=== PATIENT | female | born 1965 | race Caucasian/White ===

== ENCOUNTER 2019-07-28 05:53 | Day surgery (SDC) | payer BC, OTHER ==
[2019-07-26 09:05] VITALS: BMI 23.0
[2019-07-28 07:02] VITALS: TEMP 97.6
[2019-07-28] MEDS ORDERED: KETAMINE HCL 500 MG/10 ML VIAL ONE (07:19)
[2019-07-28] MEDS ORDERED: ONDANSETRON 4 MG/2 ML VIAL IVPUSH PRN (08:55)
[2019-07-28] MEDS ORDERED: LACTATED RINGERS SOLUTION 1,000 ML IV SCH (09:00)
[2019-07-28 09:04] VITALS: BP 128/74; PULSE 68
== END 2019-07-28 09:08 | disposition home or self-care (01) ==
LOC: FECT 05:53
PROVIDERS: ATTEND Psychiatry & Neurology Psychiatry
PROC: GZB4ZZZ Other Electroconvulsive Therapy (ICD-10-PCS; principal; 2019-07-28 07:15)
DX: F32.9 Major depressive disorder, single episode, unspecified (principal)
CPT/HCPCS: 90870; 94760

== ENCOUNTER 2019-07-30 05:47 | Day surgery (SDC) | payer BC, OTHER ==
[2019-07-27 10:13] VITALS: BMI 23.0
[2019-07-30 07:06] VITALS: TEMP 97.8
[2019-07-30] MEDS ORDERED: KETAMINE HCL 500 MG/10 ML VIAL ONE (07:42)
[2019-07-30] MEDS ORDERED: ACETAMINOPHEN 325 MG TABLET (FP) ONE (08:49)
[2019-07-30] MEDS ORDERED: ACETAMINOPHEN 325 MG TABLET (FP) PO PRN (09:09)
[2019-07-30 09:11] VITALS: BP 136/72; PULSE 76
== END 2019-07-30 09:12 | disposition home or self-care (01) ==
LOC: FECT 05:47
PROVIDERS: ATTEND Psychiatry & Neurology Psychiatry
PROC: GZB4ZZZ Other Electroconvulsive Therapy (ICD-10-PCS; principal; 2019-07-30 07:45)
DX: F32.9 Major depressive disorder, single episode, unspecified (principal)
CPT/HCPCS: 90870; 94760

== ENCOUNTER 2019-08-04 05:39 | Day surgery (SDC) | payer BC, OTHER ==
[2019-07-29 10:18] VITALS: BMI 23.0
[2019-08-04] MEDS ORDERED: KETAMINE HCL 500 MG/10 ML VIAL ONE (07:40)
[2019-08-04] MEDS ORDERED: ACETAMINOPHEN 325 MG TABLET (FP) PO PRN (07:59)
[2019-08-04 08:42] VITALS: PULSE 87
[2019-08-04 09:05] VITALS: TEMP 98.2
[2019-08-04 09:34] VITALS: BP 109/54
== END 2019-08-04 09:36 | disposition home or self-care (01) ==
LOC: FECT 05:39
PROVIDERS: ATTEND Psychiatry & Neurology Psychiatry
PROC: GZB4ZZZ Other Electroconvulsive Therapy (ICD-10-PCS; principal; 2019-08-04 07:00)
DX: F32.9 Major depressive disorder, single episode, unspecified (principal)
CPT/HCPCS: 90870; 94760

== ENCOUNTER 2019-08-06 05:48 | Day surgery (SDC) | payer BC, OTHER ==
[2019-07-29 10:23] VITALS: BMI 23.0
[2019-08-06] MEDS ORDERED: KETAMINE HCL 500 MG/10 ML VIAL ONE (07:38)
[2019-08-06 09:09] VITALS: BP 135/80; PULSE 65; TEMP 98.4
[2019-08-06] MEDS ORDERED: ONDANSETRON 4 MG/2 ML VIAL IVPUSH PRN (09:44)
[2019-08-06] MEDS ORDERED: LACTATED RINGERS SOLUTION 1,000 ML IV SCH (09:45)
== END 2019-08-06 09:14 | disposition home or self-care (01) ==
LOC: FECT 05:48
PROVIDERS: ATTEND Psychiatry & Neurology Psychiatry
PROC: GZB4ZZZ Other Electroconvulsive Therapy (ICD-10-PCS; principal; 2019-08-06 07:45)
DX: F33.2 Major depressive disorder, recurrent severe without psychotic features (principal)
CPT/HCPCS: 82962; 90870; 94760

== ENCOUNTER 2019-08-11 05:41 | Day surgery (SDC) | payer BC, OTHER ==
[2019-08-02 16:47] VITALS: BMI 23.0
[2019-08-11 06:35] VITALS: TEMP 97.9
[2019-08-11] MEDS ORDERED: KETAMINE HCL 500 MG/10 ML VIAL ONE (07:04)
[2019-08-11] MEDS ORDERED: LACTATED RINGERS SOLUTION 1,000 ML IV SCH (07:45)
[2019-08-11 08:51] VITALS: BP 118/77; PULSE 69
== END 2019-08-11 08:50 | disposition home or self-care (01) ==
LOC: FECT 05:41
PROVIDERS: ATTEND Psychiatry & Neurology Psychiatry
PROC: GZB4ZZZ Other Electroconvulsive Therapy (ICD-10-PCS; principal; 2019-08-11 07:15)
DX: F32.9 Major depressive disorder, single episode, unspecified (principal)
CPT/HCPCS: 90870; 94760

== ENCOUNTER 2019-08-13 05:44 | Day surgery (SDC) | payer BC, OTHER ==
[2019-08-06 13:42] VITALS: BMI 23.0
[2019-08-13 06:47] VITALS: TEMP 97.5
[2019-08-13] MEDS ORDERED: KETAMINE HCL 500 MG/10 ML VIAL ONE (07:18)
[2019-08-13 09:12] VITALS: BP 132/62; PULSE 61
== END 2019-08-13 08:50 | disposition home or self-care (01) ==
LOC: FECT 05:44
PROVIDERS: ATTEND Psychiatry & Neurology Psychiatry
PROC: GZB4ZZZ Other Electroconvulsive Therapy (ICD-10-PCS; principal; 2019-08-13 07:00)
DX: F33.2 Major depressive disorder, recurrent severe without psychotic features (principal)
CPT/HCPCS: 90870; 94760

== ENCOUNTER 2019-08-18 05:39 | Day surgery (SDC) | payer BC, OTHER ==
[2019-08-11 14:45] VITALS: BMI 23.0
[2019-08-18] MEDS ORDERED: KETAMINE HCL 500 MG/10 ML VIAL ONE (07:40)
[2019-08-18 09:10] VITALS: TEMP 97.6
[2019-08-18 10:02] VITALS: BP 101/59; PULSE 61
== END 2019-08-18 09:30 | disposition home or self-care (01) ==
LOC: FECT 05:39
PROVIDERS: ATTEND Psychiatry & Neurology Psychiatry
PROC: GZB4ZZZ Other Electroconvulsive Therapy (ICD-10-PCS; principal; 2019-08-18 07:00)
DX: F32.9 Major depressive disorder, single episode, unspecified (principal)
CPT/HCPCS: 90870; 94760

== ENCOUNTER 2019-08-20 05:44 | Day surgery (SDC) | payer BC, OTHER ==
[2019-08-11 14:52] VITALS: BMI 23.0
[2019-08-20 06:46] VITALS: TEMP 97.8
[2019-08-20] MEDS ORDERED: KETAMINE HCL 500 MG/10 ML VIAL ONE (07:21)
[2019-08-20 09:02] VITALS: BP 108/56; PULSE 59
--- NOTE | 2019-08-20 09:40 | HP ---
CHIEF COMPLAINT: Major depressive disorder PCP: Dr. Saul Scruggs [place] Primary Psychiatrist: Nora Edge PA Pain management: Courtney Burt (U) HISTORY OF PRESENT ILLNESS: 53 year-old female with a PMH significant for major depressive disorder, active polysubstance abuse (heroin, cocaine, marijuana), and chronic back pain (benzos , opioids). Her first ECT session was on 07/19/19 at [facility]. She presents today for ECT. Recent Events: --none reported Recent travel No PAST MEDICAL HISTORY Major depressive disorder Polysubstance abuse Chronic back pain PAST SURGICAL HISTORY: None Social History: on disability, lives in [place] with fioksanae and daughter Smoking: quit 05/2019 after 30 years Alcohol: no Drugs: patient denies drug use; however, records from [facility] indicates she is actively using marijuana, cocaine, and heroin; also see ISTOP below Family history: adopted, no knowledge of biological family Allergies sumatriptan [From Imitrex] Allergy (Severe, Verified 08/11/19 14:42) Swelling HOME MEDICATIONS: Home Medications Medication Instructions Recorded Cyclobenzaprine HCl [Flexeril 10 10 mg PO BID PRN 07/26/19 mg] Fluoxetine HCl [Prozac] 40 mg PO DAILY 07/26/19 Quetiapine Fumarate [Seroquel -] 100 mg PO HS 07/26/19 Ziprasidone HCl [Geodon] 80 mg PO BID 07/26/19 clonazePAM [Klonopin -] 0.5 mg PO BID 07/26/19 Ibuprofen [Motrin -] 600 mg PO PRN PRN 08/18/19 REVIEW OF SYSTEMS CONSTITUTIONAL: Absent: fever, chills, diaphoresis, generalized weakness, malaise, loss of appetite, weight change HEENT: Absent: rhinorrhea, nasal congestion, throat pain, throat swelling, difficulty swallowing, mouth swelling, ear pain, eye pain, visual changes CARDIOVASCULAR: Absent: chest pain, syncope, palpitations, irregular heart rate, lightheadedness , peripheral edema RESPIRATORY: Absent: cough, shortness of breath, dyspnea with exertion, orthopnea, wheezing, stridor, hemoptysis GASTROINTESTINAL: Absent: abdominal pain, abdominal distension, nausea, vomiting, diarrhea, constipation, melena, hematochezia GENITOURINARY: Absent: dysuria, frequency, urgency, hesitancy, hematuria, flank pain, genital pain MUSCULOSKELETAL: Absent: myalgia, arthralgia, joint swelling, back pain, neck pain SKIN: Absent: rash, itching, pallor HEMATOLOGIC/IMMUNOLOGIC: Absent: easy bleeding, easy bruising, lymphadenopathy, frequent infections ENDOCRINE: Absent: unexplained weight gain, unexplained weight loss, heat intolerance, cold intolerance NEUROLOGIC: Absent: headache, focal weakness or paresthesias, dizziness, unsteady gait, seizure, mental status changes, bladder or bowel incontinence PHYSICAL EXAMINATION Vital Signs - 24 hr 08/20/19 08/20/19 08/20/19 06:44 07:47 07:52 Temperature 97.8 F Pulse Rate 49 L 46 L 48 L Respiratory 16 10 16 Rate Blood Pressure 89/47 L 91/37 L 88/44 L O2 Sat by Pulse 94 L 91 L 93 L Oximetry (%) 08/20/19 08/20/19 08/20/19 07:57 08:00 08:09 Temperature Pulse Rate 56 L 62 48 L Respiratory 13 19 17 Rate Blood Pressure 102/64 104/60 141/62 O2 Sat by Pulse 92 L 94 L 93 L Oximetry (%) 08/20/19 08/20/19 08/20/19 08:15 08:25 08:30 Temperature 97.8 F Pulse Rate 51 L 50 L 54 L Respiratory 14 16 18 Rate Blood Pressure 100/54 L 103/67 112/56 L O2 Sat by Pulse 95 95 96 Oximetry (%) 08/20/19 08/20/19 09:00 09:15 Temperature 97.8 F 97.8 F Pulse Rate 59 L 59 L Respiratory 18 18 Rate Blood Pressure 108/56 L 108/56 L O2 Sat by Pulse 96 Oximetry (%) GENERAL: Patient seen after ECT treatment; appears sleepy but fully arousable, answers questions appropriately HEAD: Normal with no signs of trauma. EYES: Pupils equal, round and reactive to light, sclera anicteric, conjunctiva clear. LUNGS: Breath sounds equal, clear to auscultation bilaterally. No wheezes, and no crackles. No accessory muscle use. HEART: Regular rate and rhythm, normal S1 and S2 ABDOMEN: Soft, nontender, not distended MUSCULOSKELETAL: Normal range of motion at all joints. No bony deformities or tenderness. No CVA tenderness. UPPER EXTREMITIES: 2+ pulses, warm, well-perfused. No cyanosis. No clubbing. No peripheral edema. LOWER EXTREMITIES: 2+ pulses, warm, well-perfused. No calf tenderness. No peripheral edema. NEUROLOGICAL: Cranial nerves II-XII intact. Normal speech. ASSESSMENT/PLAN: 53 year-old female with a PMH significant for major depressive disorder, active polysubstance abuse (heroin, cocaine, marijunana), and chronic back pain (benzos , opioids). Her first ECT session was on 07/19/19 at [facility]. She presents today for ECT. Earlier today utox ordered by OR team, results pending. Cardiac --no cardiac history --Revised Cardiac Risk Index for Pre-Operative Risk: 0 points, 0.4% risk of major cardiac event Pulmonary --no pulmonary history Neurological --no neurological or neurosurgical history; no history of trauma Anesthesia --no reported problems with anesthesia ECT is a low risk procedure. The relative benefits of the planned procedure outweigh the relative risks for this patient at this time. Visit type - Emergency Visit Emergency Visit: No - New Patient This patient is new to me today: Yes Date on this admission: 08/20/19 - Critical Care Critical Care patient: No
[2019-08-30 06:07] LABS: ALPRAZOLAM, UR Negative (Cutoff=100); BENZODIAZEPINES, UR See Final Results ng/mL (Cutoff=200); CANNABINOID Positive (Cutoff=20); CANNABINOIDS, URINE See Final Results ng/mL (Cutoff=20); CLONAZEPAM, UR Negative (Cutoff=100); CODEINE GC/MS CONF 825 ng/mL (Cutoff=300); CODEINE, URINE Positive (.); FLURAZEPAM, UR Negative (Cutoff=100); LORAZEPAM, UR Negative (Cutoff=100); METHADONE, URINE Negative ng/mL (Cutoff=300); MORPHINE, URINE Positive (.); OPIATES, UR See Final Results ng/mL (Cutoff=300); OXAZEPAM, UR Positive (.); PHENCYCLIDINE, URINE Negative ng/mL (Cutoff=25); TRIAZOLAM, UR Negative (Cutoff=100)
== END 2019-08-20 09:15 | disposition home or self-care (01) ==
LOC: FECT 05:44
PROVIDERS: ATTEND Psychiatry & Neurology Psychiatry
PROC: GZB4ZZZ Other Electroconvulsive Therapy (ICD-10-PCS; principal; 2019-08-20 07:00)
DX: F32.9 Major depressive disorder, single episode, unspecified (principal)
CPT/HCPCS: 36415; 80307; 90870; 94760

== ENCOUNTER 2019-08-27 05:46 | Day surgery (SDC) | payer BC, OTHER ==
--- NOTE | 2019-07-26 09:42 | HP ---
"CHIEF COMPLAINT: Major depressive disorder PCP: Dr. Saul Scruggs [place] Primary Psychiatrist: Nora Edge PA Pain management: Courtney Burt (U) HISTORY OF PRESENT ILLNESS: 53 year-old female with a PMH significant for major depressive disorder, active polysubstance abuse (heroin, cocaine, marijunana), and chronic back pain (benzos , opioids). Her first ECT session was on 07/19/19 at [facility]. She presents today for ECT. Recent Events: --discharged from [facility] psych/drug unit Recent travel No PAST MEDICAL HISTORY: Major depressive disorder Polysubstance abuse Chronic back pain PAST SURGICAL HISTORY: None Social History: on disability, lives in [place] with lizbethe and daughter Smoking: quit 05/2019 after 30 years Alcohol: no Drugs: patient denies drug use; however, records from [facility] indicates she is actively using marijuana, cocaine, and heroin; also see ISTOP below Family history: adopted, no knowledge of biological family Allergies sumatriptan [From Imitrex] Allergy (Severe, Verified 07/26/19 08:42) Swelling HOME MEDICATIONS: Home Medications Medication Instructions Recorded Cyclobenzaprine HCl [Flexeril 10 10 mg PO BID PRN 07/26/19 mg] Fluoxetine HCl [Prozac] 40 mg PO DAILY 07/26/19 Quetiapine Fumarate [Seroquel -] 100 mg PO HS 07/26/19 Ziprasidone HCl [Geodon] 80 mg PO BID 07/26/19 clonazePAM [Klonopin -] 0.5 mg PO BID 07/26/19 REVIEW OF SYSTEMS CONSTITUTIONAL: Absent: fever, chills, diaphoresis, generalized weakness, malaise, loss of appetite, weight change HEENT: Absent: rhinorrhea, nasal congestion, throat pain, throat swelling, difficulty swallowing, mouth swelling, ear pain, eye pain, visual changes CARDIOVASCULAR: Absent: chest pain, syncope, palpitations, irregular heart rate, lightheadedness , peripheral edema RESPIRATORY: Absent: cough, shortness of breath, dyspnea with exertion, orthopnea, wheezing, stridor, hemoptysis GASTROINTESTINAL: Absent: abdominal pain, abdominal distension, nausea, vomiting, diarrhea, constipation, melena, hematochezia GENITOURINARY: Absent: dysuria, frequency, urgency, hesitancy, hematuria, flank pain, genital pain MUSCULOSKELETAL: Absent: myalgia, arthralgia, joint swelling, back pain, neck pain SKIN: Absent: rash, itching, pallor HEMATOLOGIC/IMMUNOLOGIC: Absent: easy bleeding, easy bruising, lymphadenopathy, frequent infections ENDOCRINE: Absent: unexplained weight gain, unexplained weight loss, heat intolerance, cold intolerance NEUROLOGIC: Absent: headache, focal weakness or paresthesias, dizziness, unsteady gait, seizure, mental status changes, bladder or bowel incontinence PHYSICAL EXAMINATION Vitals: BP 132/87, p 97, 100% RA GENERAL: Awake, alert, and fully oriented, in no acute distress. HEAD: Normal with no signs of trauma. EYES: Pupils equal, round and reactive to light, sclera anicteric, conjunctiva clear. LUNGS: Breath sounds equal, clear to auscultation bilaterally. No wheezes, and no crackles. No accessory muscle use. HEART: Regular rate and rhythm, normal S1 and S2 ABDOMEN: Soft, nontender, not distended MUSCULOSKELETAL: Normal range of motion at all joints. No bony deformities or tenderness. No CVA tenderness. UPPER EXTREMITIES: 2+ pulses, warm, well-perfused. No cyanosis. No clubbing. No peripheral edema. LOWER EXTREMITIES: 2+ pulses, warm, well-perfused. No calf tenderness. No peripheral edema. NEUROLOGICAL: Cranial nerves II-XII intact. Normal speech. ASSESSMENT/PLAN: 53 year-old female with a PMH significant for major depressive disorder, active polysubstance abuse (heroin, cocaine, marijunana), and chronic back pain (benzos , opioids). Her first ECT session was on 07/19/19 at [facility]. She presents today for ECT. Cardiac --no cardiac history --Revised Cardiac Risk Index for Pre-Operative Risk: 0 points, 0.4% risk of major cardiac event Pulmonary --no pulmonary history Neurological --no neurological or neurosurgical history; no history of trauma Anesthesia --no reported problems with anesthesia --discussed patient's drug use with anesthesia and with [facility] staff ECT is a low risk procedure. The relative benefits of the planned procedure outweigh the relative risks for this patient at this time. ISTOP The Drug Utilization Report below displays all of the controlled substance prescriptions, if any, that your patient has filled in the last twelve months. The information displayed on this report is compiled from pharmacy submissions to the Department, and accurately reflects the information as submitted by the pharmacies. This report was requested by: Niyah Wang | Reference #: [id number] Others' Prescriptions Patient Name: Deanna Carroll Date: 1965 Address: [address] [place] [address] Sex: Female Rx Written Rx Dispensed Drug Quantity Days Supply Prescriber Name 07/21/2019 07/21/2019 clonazepam 0.5 mg tablet 14 7 Denise Grace S, 06/22/2019 06/22/2019 oxycodone-acetaminophen 5-325 mg tab 90 30 Etienne Bejarano MD 04/14/2019 04/22/2019 diazepam 10 mg tablet 270 90 Dylon Hernandez 02/24/2019 02/28/2019 oxycodone-acetaminophen 5-325 mg tab 90 30 Etienne Bejarano MD 01/25/2019 01/25/2019 oxycodone-acetaminophen 5-325 mg tab 90 30 Etienne Bejarano MD 12/30/2018 12/30/2018 clonazepam 1 mg tablet 90 30 Ermias El MD 12/21/2018 12/25/2018 oxycodone-acetaminophen 5-325 mg tab 90 30 Etienne Bejarano MD 11/30/2018 11/30/2018 clonazepam 1 mg tablet 90 30 Ermias El MD 11/10/2018 11/12/2018 oxycodone-acetaminophen 5-325 mg tab 90 30 Etienne Bejarano MD 10/25/2018 10/27/2018 clonazepam 1 mg tablet 90 30 Ermias El MD 10/09/2018 10/13/2018 oxycodone-acetaminophen 5-325 mg tab 90 30 Etienne Bejarano MD 09/28/2018 09/28/2018 clonazepam 1 mg tablet 90 30 Ermias El MD 09/11/2018 09/11/2018 oxycodone-acetaminophen 5-325 mg tab 90 30 Eteinne Bejarano MD 08/25/2018 08/29/2018 clonazepam 1 mg tablet 90 30 Ermias El MD 08/11/2018 08/12/2018 oxycodone-acetaminophen 5-325 mg tab 90 30 Etienne Bejarano MD 07/30/2018 07/30/2018 clonazepam 1 mg tablet 90 30 Ermias El MD Visit type - Emergency Visit Emergency Visit: No - New Patient This patient is new to me today: Yes Date on this admission: 07/27/19 - Critical Care Critical Care patient: No"
[2019-07-27 14:39] VITALS: BMI 23.0
[2019-08-27] MEDS ORDERED: KETAMINE HCL 500 MG/10 ML VIAL ONE (07:11)
[2019-08-27] MEDS ORDERED: ACETAMINOPHEN 500 MG TABLET (FP) PO PRN (07:59)
[2019-08-27 08:52] VITALS: TEMP 97.8
[2019-08-27 09:15] VITALS: BP 115/71; PULSE 64
== END 2019-08-27 09:30 | disposition home or self-care (01) ==
LOC: FECT 05:46
PROVIDERS: ATTEND Psychiatry & Neurology Psychiatry
PROC: GZB4ZZZ Other Electroconvulsive Therapy (ICD-10-PCS; principal; 2019-08-27 07:15)
DX: F32.9 Major depressive disorder, single episode, unspecified (principal)
CPT/HCPCS: 90870; 94760

== ENCOUNTER 2019-09-01 05:47 | Day surgery (SDC) | payer BC, OTHER ==
[2019-09-01 06:49] VITALS: BMI 23.0
[2019-09-01] MEDS ORDERED: KETAMINE HCL 500 MG/10 ML VIAL ONE (07:16)
[2019-09-01 08:55] VITALS: TEMP 98.2
[2019-09-01 09:26] VITALS: BP 118/61; PULSE 61
== END 2019-09-01 09:28 | disposition home or self-care (01) ==
LOC: FECT 05:47
PROVIDERS: ATTEND Psychiatry & Neurology Psychiatry
PROC: GZB4ZZZ Other Electroconvulsive Therapy (ICD-10-PCS; principal; 2019-09-01 07:15)
DX: F32.9 Major depressive disorder, single episode, unspecified (principal)
CPT/HCPCS: 90870; 94760